=== PATIENT | female | born 1970 | race Caucasian/White ===

== ENCOUNTER 2018-05-02 18:10 | Emergency (ER) | payer OTHER ==
[~2018-05-02] VITALS: Ht 152.4 cm; Wt 81.6 kg
[2018-05-02 18:23] VITALS: BP 170/100
--- NOTE | 2018-05-02 18:29 | NUR ---
PATIENT AMBULATED TO BED 8.
--- NOTE | 2018-05-02 18:53 | NUR ---
PATIENT PRESENTS TO ED WITH THE CHIEF C/O NAUSEA SINCE 2 HOURS AGO. DENIES V/D. DENIES ANY ABDOMINAL PAIN. ABDOMEN SOFT, ROUND AND NON-TENDER. ACTIVE BOWEL SOUND. IS ON HER PERIOD. SKIN IS PINK/WARM/DRY; AAOX4 WITH EVEN AND STEADY GAIT; LUNGS CLEAR BL; HR EVEN AND REGULAR. PT DENIES ANY FEVER, CP, SOB, OR COUGH AT THIS TIME. PATIENT STATES PAIN OF 0/10 AT THIS TIME. VSS. PATIENT POSITIONED FOR COMFORT; HOB ELEVATED; BEDRAILS UP X2; BED DOWN. ER MD MADE AWARE OF PT STATUS.
--- NOTE | 2018-05-02 19:13 | NUR ---
REPORT GIVEN TO SHOE REPAIRMAN RN FOR CONTINUITY OF CARE.
--- NOTE | 2018-05-02 19:31 | NUR ---
Dr. Mcdaniels evaluating patient at bedside.
[2018-05-02 19:40] VITALS: BP 152/91
--- NOTE | 2018-05-02 19:40 | NUR ---
Patient discharged with v/s stable. Written and verbal after care instructions given and explained. Patient verbalized understanding. Ambulatory with steady gait. All questions addressed prior to discharge. Advised to follow up with PMD.
== END 2018-05-02 19:40 | disposition home or self-care (01) ==
LOC: MED 18:10
DX: I10 Essential (primary) hypertension (principal)
CPT/HCPCS: 99281